=== PATIENT | female | born 1950 | race Caucasian/White ===

== ENCOUNTER 2018-01-24 10:37 | Emergency (ER) | payer OTHER ==
[~2018-01-24] VITALS: Ht 175.3 cm; Wt 95.0 kg
[~2018-01-24 10:37] MED LIST: AMLO5 PO; ESTR1TAB12 PO; FLOR250C PO; MOXI400T4 PO; OXYC5 PO; RANI150UDC PO; ZOFR4SOL PO
[2018-01-24 10:56] VITALS: BP 167/77; PULSE 80; RESP 14; TEMP 98; O2SAT 96
[2018-01-24] MEDS ORDERED: SODIUM CHLORIDE 0.9% FLUSH 10 ML FLUSH IV FLUSH PRN (13:15)
--- NOTE | 2018-01-24 13:32 | PD ---
HPI Chief Complaint: Medical Clearance Time Seen by Provider: 12:42 Travel History International Travel<30 days: No Contact w/Intl Traveler<30days: No Traveled to known affect area: No History of Present Illness HPI Patient is a 67 year old female with history of hyperlipidemia and hypertension , presents to the ER with multiple complaints. Patient reports that she has history of hypertension and has been on antihypertensives in the past, reports that she recently saw her primary are doctor and was told that because her blood pressure was 110/70, she did not require a refill on her antihypertensives. Reports that she has not been on any antihypertensives since May/Jun. Reports that she was sitting and watching TV today when she was having problems hearing. She had to turn up the volume which was unusual for her and then she began to have some ringing in her ear. She then took out her blood pressure cuff and noted her BP to be in the 220's/100's. Patient rechecked it later and pressure did go down - she called her primary care doctor who told her that she can be seen in the office in March when the next opening was or she could go to the ER for evaluation. Reports that she opted to come to the ER for evaluation as she was concerned with her blood pressure. Denies head/dizzyness. Denies vision changes. Reports resolution of tinnitus. Denies chest pain/sob. Denies abdominal pain. Denies n/v. Also reports concern for a possible DVT. She has history of bad knees and does need a knee replacement. This has caused her to be sedentary. She has been having pain behind her thighs which made her concerned for a DVT. Denies any recent travels/trips. Denies history of DVT/PE PFSH Past Medical History Hx Anticoagulant Therapy: No Arthritis: Yes Heart Rhythm Problems: No Cancer: No Cardiovascular Problems: No High Cholesterol: Yes Chemotherapy: No Chest Pain: No Congestive Heart Failure: No Cerebrovascular Accident: No Diabetes: No Diminished Hearing: No Diverticulitis: Yes Endocrine: No GERD: Yes Genitourinary: Yes (BLADDER SLING ) Hiatal Hernia: No Immune Disorder: No Musculoskeletal: Yes Neurologic: No Psychiatric: No Reproductive: No Respiratory: No Radiation Therapy: No Thyroid Disease: No Ulcer: No ?: Not Past Surgical History Abdominal Surgery: Yes (HYSTERECTOMY, GALBLADDER REMOVED) Appendectomy: Yes Body Medical Devices: BLADDER SLING Cardiac Surgery: No Cholecystectomy: Yes Ear Surgery: No Endocrine Surgery: No Eye Surgery: No Genitourinary Surgery: No Gynecologic Surgery: Yes Hysterectomy: Yes Oral Surgery: No Thoracic Surgery: No Social History Alcohol Use: No Tobacco Use: No Substance Use: No Allergies-Medications (Allergen,Severity, Reaction): Coded Allergies: No Known Allergies (Verified , 01/27/16) Reported Meds & Prescriptions Reported Meds & Active Scripts Active Amlodipine (Amlodipine Besylate) 5 Mg Tab 5 Mg PO DAILY Zofran Soln (Ondansetron HCl) 4 Mg/5 Ml Faina 4 Mg PO BID 14 Days Roxicodone 5 Mg Tab (Oxycodone HCl) 5 Mg Tab 5 Mg PO Q6H PRN Avelox (Moxifloxacin HCl) 400 Mg Tab 400 Mg PO Q24H Norvasc (Amlodipine Besylate) 5 Mg Tab 2.5 Mg PO DAILY 30 Days Zantac (Ranitidine HCl) 150 Mg/10 Ml Syrp 150 Mg PO Q12HR 30 Days Reported Florastor (Saccharomyces Boulardii) 250 Mg Cap 250 Mg PO BID Estrace (Estradiol) 1 Mg Tab 1 Mg PO DAILY Review of Systems General / Constitutional: No: Fever Eyes: No: Visual changes HENT: Positive: Other (tinitis), No: Headaches Cardiovascular: No: Chest Pain or Discomfort Respiratory: No: Shortness of Breath Gastrointestinal: No: Abdominal Pain Genitourinary: No: Dysuria Musculoskeletal: Positive: Cramping (thigh), No: Pain Skin: No Rash Neurologic: No: Weakness Psychiatric: No: Depression Endocrine: No: Polydipsia Hematologic/Lymphatic: No: Easy Bruising Physical Exam Narrative GENERAL: Mild distress SKIN: Focused skin assessment warm/dry. HEAD: Atraumatic. Normocephalic. EYES: Pupils equal and round. No scleral icterus. No injection or drainage. ENT: No nasal bleeding or discharge. Mucous membranes pink and moist. NECK: Trachea midline. No JVD. CARDIOVASCULAR: Regular rate and rhythm. No murmur appreciated. RESPIRATORY: No accessory muscle use. Clear to auscultation. Breath sounds equal bilaterally. GASTROINTESTINAL: Abdomen soft, non-tender, nondistended. Hepatic and splenic margins not palpable. MUSCULOSKELETAL: No obvious deformities. No clubbing. No cyanosis. No edema. NEUROLOGICAL: Awake and alert. No obvious cranial nerve deficits. Motor grossly within normal limits. Normal speech. CN 2- 12 grossly intact with no neurovascular compromise PSYCHIATRIC: Appropriate mood and affect; insight and judgment normal. Data Data Last Documented VS Vital Signs Date Time Temp Pulse Resp B/P (MAP) Pulse Ox O2 Delivery O2 Flow Rate FiO2 01/24/18 10:56 98.0 80 14 167/77 (107) 96 Orders Orders Complete Blood Count With Diff (01/24/18 13:06) Comprehensive Metabolic Panel (01/24/18 13:06) Prothrombin Time / Inr (Pt) (01/24/18 13:06) Act Partial Throm Time (Ptt) (01/24/18 13:06) Iv Access Insert/Monitor (01/24/18 13:06) Ecg Monitoring (01/24/18 13:06) Oximetry (01/24/18 13:06) Sodium Chloride 0.9% Flush (Ns Flush) (01/24/18 13:15) Electrocardiogram (01/24/18 13:06) Ct Brain W/O Iv Contrast(Rout) (01/24/18 13:06) Us Leg Venous Doppler Bilat (01/24/18 ) Amlodipine (Norvasc) (01/24/18 13:45) Amlodipine (Norvasc) (01/24/18 13:45) Acetaminophen (Tylenol) (01/24/18 14:45) Basic Metabolic Panel (Bmp) (01/24/18 14:36) Labs Laboratory Tests Test 01/24/18 13:26 01/24/18 15:14 White Blood Count 5.6 TH/MM3 Red Blood Count 4.68 MIL/MM3 Hemoglobin 13.7 GM/DL Hematocrit 40.4 % Mean Corpuscular Volume 86.3 FL Mean Corpuscular Hemoglobin 29.2 PG Mean Corpuscular Hemoglobin Concent 33.8 % Red Cell Distribution Width 13.6 % Platelet Count 183 TH/MM3 Mean Platelet Volume 10.0 FL Neutrophils (%) (Auto) 62.2 % Lymphocytes (%) (Auto) 27.8 % Monocytes (%) (Auto) 7.7 % Eosinophils (%) (Auto) 1.7 % Basophils (%) (Auto) 0.6 % Neutrophils # (Auto) 3.5 TH/MM3 Lymphocytes # (Auto) 1.5 TH/MM3 Monocytes # (Auto) 0.4 TH/MM3 Eosinophils # (Auto) 0.1 TH/MM3 Basophils # (Auto) 0.0 TH/MM3 CBC Comment DIFF FINAL Differential Comment Prothrombin Time 9.7 SEC Prothromb Time International Ratio 1.0 RATIO Activated Partial Thromboplast Time 25.1 SEC Blood Urea Nitrogen 16 MG/DL 15 MG/DL Creatinine 0.94 MG/DL 0.87 MG/DL Random Glucose 97 MG/DL 91 MG/DL Total Protein 7.6 GM/DL Albumin 4.0 GM/DL Calcium Level 9.4 MG/DL 9.4 MG/DL Alkaline Phosphatase 67 U/L Aspartate Amino Transf (AST/SGOT) 40 U/L Alanine Aminotransferase (ALT/SGPT) 25 U/L Total Bilirubin 0.4 MG/DL Sodium Level 140 MEQ/L 142 MEQ/L Potassium Level 6.0 MEQ/L 3.8 MEQ/L Chloride Level 110 MEQ/L 109 MEQ/L Carbon Dioxide Level 23.6 MEQ/L 24.6 MEQ/L Anion Gap 6 MEQ/L 8 MEQ/L Estimat Glomerular Filtration Rate 59 ML/MIN 65 ML/MIN [facility] Medical Decision Making Medical Screen Exam Complete: Yes Emergency Medical Condition: Yes Medical Record Reviewed: Yes Interpretation(s) Vital Signs Date Time Temp Pulse Resp B/P (MAP) Pulse Ox O2 Delivery O2 Flow Rate FiO2 01/24/18 10:56 98.0 80 14 167/77 (107) 96 Differential Diagnosis Accelerated hypertension, intracranial mass, electrolyte abnormality, DVT Narrative Course During the course of the patients emergency department visit, the patients history, examination, and differential diagnosis were reviewed with the patient. The patient was placed on a heel seater with oximetry and frequent blood pressure monitoring. The patient had an IV access obtained and blood work sent for analysis. The patient was initially provided norvasc 5mg The patients laboratory studies were reviewed and remarkable for: CBC & BMP Diagram 01/24/18 13:26 Total Protein 7.6, Albumin 4.0, Calcium Level 9.4, Alkaline Phosphatase 67, Aspartate Amino Transf (AST/SGOT) 40 H, Alanine Aminotransferase (ALT/SGPT) 25, Total Bilirubin 0.4 Radiology studies were reviewed and remarkable for Last Impressions Lower Extremity Ultrasound 01/24/18 0000 Signed Impressions: CONCLUSION: 1. Negative for deep venous thrombosis. 2. Left popliteal fossa cyst measuring 2.6 x 2.8 cm. Patient potassium 6.0 - most likely hemolyzed sample - repeat BMP sent Patient with no evidence for dvt. Discussed need for repeat ultrasound 1 week if symptoms persisted Repeat BMP shows a potassium of 3.8, she is not hyperkalemic. Last Impressions Lower Extremity Ultrasound 01/24/18 0000 Signed Impressions: CONCLUSION: 1. Negative for deep venous thrombosis. 2. Left popliteal fossa cyst measuring 2.6 x 2.8 cm. Patient is well-appearing, patient with normal vital signs. Patient will follow -up with her primary care doctor and will return to the emergency room as needed. I will start patient on amlodipine 5 mg as she is hypertensive and would benefit from it ct of head with no acute abnormalities. All studies and labs were reviewed - she is safe to be discharged with outpatient follow up Diagnosis Primary Impression: Hypertension Qualified Codes: I10 - Essential (primary) hypertension Additional Impression: Leg cramping Patient Instructions: General Instructions Additional Instructions: Please provide patient with a copy of their lab work and studies at discharge* * Please follow up with your primary care doctor in 2-3 days Return to the ER if symptoms worsen or progress Return to the ER as needed Please return to the emergency room in 1 week for repeat ultrasound of your leg if symptoms persist Med/Other Pt SpecificInfo: Prescription(s) given Scripts Amlodipine (Amlodipine) 5 Mg Tab 5 MG PO DAILY for Blood Pressure Management, #60 TAB 0 Refills Prov: Michelle Weiss DO 01/24/18 Disposition: 01 DISCHARGE HOME Condition: Stable Michelle Weiss DO Jan 24, 2018 13:32
[2018-01-24] MEDS ORDERED: amLODIPine BESYLATE 5 MG TAB PO ONE ×2 (13:45)
[2018-01-24 13:51] LABS: AUTOMATED NEUTROPHIL # 3.5 TH/MM3 (1.8-7.7); BASOPHIL % 0.6 % (0.0-2.0); EOSINOPHIL # 0.1 TH/MM3 (0-0.4); EOSINOPHIL % 1.7 % (0.0-4.0); HEMATOCRIT 40.4 % (35.0-46.0); HEMOGLOBIN 13.7 GM/DL (11.6-15.3); LYMPH % 27.8 % (9.0-44.0); LYMPHOCYTE # 1.5 TH/MM3 (1.0-4.8); MEAN CELL VOLUME 86.3 FL (80.0-100.0); MEAN CORPUSCULAR HEMOGLOBIN 29.2 PG (27.0-34.0); MEAN CORPUSCULAR HGB CONC 33.8 % (32.0-36.0); MONO % 7.7 % (0.0-8.0); MONOCYTE # 0.4 TH/MM3 (0-0.9); NEUT % 62.2 % (16.0-70.0); PLATELET COUNT 183 TH/MM3 (150-450); RED BLOOD COUNT 4.68 MIL/MM3 (4.00-5.30); RED CELL DISTRIBUTION WIDTH 13.6 % (11.6-17.2); WHITE BLOOD COUNT 5.6 TH/MM3 (4.0-11.0)
[2018-01-24 14:11] LABS: PROTHROMBIN TIME - PATIENT 9.7 SEC (9.8-11.6)
[2018-01-24 14:18] LABS: ALKALINE PHOSPHATASE 67 U/L (45-117); TOTAL BILIRUBIN ADULT 0.4 MG/DL (0.2-1.0)
[2018-01-24 14:19] LABS: ALT (GPT) 25 U/L (10-53); AST (GOT) 40 U/L (15-37); BICARBONATE 23.6 MEQ/L (21.0-32.0); BLOOD UREA NITROGEN 16 MG/DL (7-18); CALCIUM 9.4 MG/DL (8.5-10.1); CHLORIDE 110 MEQ/L (98-107); CREATININE 0.94 MG/DL (0.50-1.00); GLOMERULAR FILTRATION RATE 59 ML/MIN (>89); GLUCOSE,RANDOM 97 MG/DL (74-106); SODIUM (NA) 140 MEQ/L (136-145); TOTAL PROTEIN 7.6 GM/DL (6.4-8.2)
--- NOTE | 2018-01-24 14:31 | RADRPT ---
EXAM DATE: 01/24/2018 2:27 PM EDT AGE/SEX: 67 years / Female INDICATIONS: Bilateral leg swelling and pain. CLINICAL DATA: This is the patient's initial encounter. Patient reports that signs and symptoms have been present for 3 weeks and indicates a pain score of 7/10. MEDICAL/SURGICAL HISTORY: Hypercholesterolemia. Diverticulitis. Gastroesophageal reflux disea se. Arthritis. History of Clostridium difficile 2005. Cholecystectomy. Hysterectomy. Appendectomy . Left knee surgery. COMPARISON: No prior exams available for comparison. TECHNIQUE: Venous ultrasound of both lower extremities was performed from the inguinal ligament to t he proximal calf. Real-time, color Doppler and spectral tracing, compression and augmentation techni ques were used. FINDINGS: Right Leg: Normal compression of the deep venous system from the inguinal region to the proximal oz f. No echogenic clot is seen. Normal response of the venous system to augmentation and respiration. Left Leg: Normal compression of the deep venous system from the inguinal region to the proximal calf . No echogenic clot is seen. Normal response of the venous system to augmentation and respiration. Le ft popliteal popliteal fossa cyst measuring 2.6 x 2.8 cm. CONCLUSION: 1. Negative for deep venous thrombosis. 2. Left popliteal fossa cyst measuring 2.6 x 2.8 cm. Electronically signed by: Reece Tran MD 01/24/2018 2:30 PM EDT
[2018-01-24] MEDS ORDERED: ACETAMINOPHEN 325 MG TAB PO ONE (14:45)
[2018-01-24] MEDS ORDERED: AMLO5TAB2 PO ×2 (15:11→17:17)
[2018-01-24 15:58] LABS: BICARBONATE 24.6 MEQ/L (21.0-32.0); CALCIUM 9.4 MG/DL (8.5-10.1); CREATININE 0.87 MG/DL (0.50-1.00)
--- NOTE | 2018-01-24 17:08 | RADRPT ---
EXAM DATE: 01/24/2018 4:56 PM EDT AGE/SEX: 67 years / Female INDICATIONS: Cephalgia, hypertension. CLINICAL DATA: This is the patient's initial encounter. Patient reports that signs and symptoms have been present for 1 day and indicates a pain score of 4/10. MEDICAL/SURGICAL HISTORY: Hypertension. Cholecystectomy. Hysterectomy. RADIATION DOSE: 56.35 CTDI (mGy) COMPARISON: [facility] [place]RA[place]/O [place], 04/21/2013. . TECHNIQUE: CT of the head without contrast. Using automated exposure control and adjustment of the mA and/or kV according to patient size, radiation dose was kept as low as reasonably achievable to ob tain optimal diagnostic quality images. DICOM format image data is available electronically for revi ew and comparison. FINDINGS: Cerebrum: The ventricles are normal for age. No evidence of midline shift, mass lesion, hemorrhage or acute infarction. No extraaxial fluid collections are seen. Posterior Fossa: The cerebellum and brainstem are intact. The 4th ventricle is midline. The cerebe llopontine angle is unremarkable. Extracranial: The visualized portion of the orbits is intact. Skull: The calvaria is intact. No evidence of skull fracture. CONCLUSION: Negative CT Head non contrast. Electronically signed by: Darian Johnson MD 01/24/2018 5:07 PM EDT
--- NOTE | 2018-01-24 19:39 | EKG ---
Date Performed: 01/24/2018 Time Performed: 14:27:08 PTAGE: 67 years EKG: SINUS BRADYCARDIA WITH SINUS ARRHYTHMIA MARKED LEFT AXIS DEVIATION POSSIBLE RIGHT VENTRICUL AR CONDUCTION DELAY LEFT VENTRICULAR HYPERTROPHY AND ST-T CHANGE POSSIBLE SEPTAL MYOCARDIAL INFARCTIO N PROBABLE LATERAL MYOCARDIAL INFARCTION ABNORMAL ECG Compared to prior electrocardiogram, Right vent ricular conduction delay and septal ME present. Q waves are slightly more prominent in the lateral le ads. PREVIOUS TRACING : 08/10/2006 10.11 DOCTOR: Mario Latham Interpretating Date/Time 01/24/2018 19:37:16
== END 2018-01-24 20:51 | disposition home or self-care (01) ==
LOC: NEPD 10:37
DX: I10 Essential (primary) hypertension (principal); R25.2 Cramp and spasm; R51 Headache; M79.89 Other specified soft tissue disorders
CPT/HCPCS: 70450; 80048; 80053; 85025; 85610; 85730; 93005; 93970; 99285